=== PATIENT | male | born 1950 | race Caucasian/White ===

== ENCOUNTER 2019-04-20 09:57 | Day surgery (SDC) | payer MEDICARE, BC ==
[~2019-04-20 09:57] MED LIST: Glycopyrrolate 0.2 MG/ML SDV ONE; Lactated Ringers 1,000 ML IV SCH; Midazolam 1 MG/ML 2 ML SDV ONE; Propofol 200 MG/20 ML SDV ONE
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
[2019-04-20] MEDS ORDERED: Propofol 200 MG/20 ML SDV ONE (11:27)
[2019-04-20] MEDS ORDERED: Phenylephrine/Normal Saline 100 MCG/ML 10 ML Syringe ONE (11:28)
--- NOTE | 2019-04-20 12:05 | PCM.OPNOTE ---
- General Post-Op/Procedure Note Date of Surgery/Procedure: 04/20/19 Operative Procedure(s): 1) colonoscopy w bx and,. 2) gastroscopy w bx Findings: see dict [id number] Pre Op Diagnosis: polyp hx and gerd Post-Op Diagnosis: Same Anesthesia Technique: Moderate Sedation Primary Surgeon: Stu Grigsby Pathology: egd bx colon bx Complications: None Condition: Good
[2019-04-20 12:15] VITALS: BP 105/60; PULSE 62
--- NOTE | 2019-04-20 14:35 | OR ---
SURGEON: Stu Grigsby MD DATE OF PROCEDURE: 04/20/2019 PREOPERATIVE DIAGNOSES: History of colon polyp and gastroesophageal reflux disease. POSTOPERATIVE DIAGNOSES: History of colon polyp and gastroesophageal reflux disease. PROCEDURES PERFORMED: Esophagogastroduodenoscopy with biopsy and colonoscopy with biopsy. DESCRIPTION OF PROCEDURE: EGD: The patient was taken to the endoscopy room, and with the [employer], Diprivan was administered. A well-lubricated EGD scope was gently inserted through the oropharynx, down the esophagus, passing through the gastroesophageal junction, into the stomach. The mucosa was examined upon the passage. Any etiology will be noted. Once in the stomach, we continued to advance to the distal antrum, passed through the pylorus into the second portion of the duodenum. Again, the mucosa was examined for any abnormality and etiology. The scope was then retrieved back to the stomach and then retroflexed to look at the fundus of the stomach. If a biopsy was indicated, we will biopsy the antrum, body, and gastroesophageal junction. The air will be sucked out while the scope is retrieved to reduce the patient's discomfort. The patient tolerated the procedure well. There were no intraoperative complications. Dr. Grigsby was present through the whole procedure. Prior to surgery, a time-out had been called, the patient identified, procedure identified and antibiotic administered. The patient was taken to the endoscopy room. A time out was called, patient identified, and procedure identified. Diprivan was then administrated. Patient went from awake to sleep, hearing doctor talking or door closing is normal. Perineum inspection and digital examination were then performed. A well- lubricated colonoscope was gently inserted through the rectum, advanced past the rectosigmoid junction, the descending colon, splenic flexure, transverse colon, hepatic flexure, ascending colon, arrived to the cecum. Cecum was identified as dictated in the finding. Then the scope was carefully withdrawn while attention was paid to the mucosal surface for any abnormality. Air will be sucked out during the scope withdrawal. At the rectum, retroflexed to examine any rectal diseases, fistula or hemorrhoids. During mucosal examination, abnormality or polyp was noted; picture taken and biopsy performed. Patient tolerated procedure well. There were no intraoperative complications, and Dr. Grigsby was present throughout the whole procedure. FINDINGS: EGD findings: 1. The patient is easily sedated with [employer] and Diprivan, the patient is soundly snoring. 2. Oropharynx and proximal esophagus are free of disease and no inflammation or stricture. Distal GE junction at 40 shows moderate salmon-colored change consistent with acid reflux. Stomach rugae are normal in appearance. Antrum is quite inflamed, no ulcer though and no food particle, blood, or bile observed. Duodenum is grossly normal. Retroflexed look at the fundus of stomach, there is no hiatal hernia, but there is quite a lot of polyp, I mean many of them, at least 100 of them. Some of them are pretty big, so biopsy done at antrum, two times, to catch the inflammatory polyp and the mass. The mass was at greater curvature. It looked like it was just a giant polyp and biopsied two times and body and also polyp in the body and so several biopsies and one at GE junction at 40 also biopsied. Sucked out the gas while scope pulling out. Colonoscopy findings: 1. The patient is easily sedated with [employer] and Diprivan, the patient is soundly snoring. 2. Bowel prep was average with moderate amount of liquid stool, no semi-formed stool. 3. Colon rather straightforward. Cecum indicated by ileocecal fold, one-to- one indentation, and appendiceal orifice. Light emittance is not observed. Mucosa examined upon scope pulling out and colon is rather short, it finished at about 1 m. There are three 2 mm sessile polyps at one ring distal to the cecum and all removed with biopsy forceps. The patient also has mild diverticulosis, no signs or symptoms of diverticulitis, of the sigmoid colon, and other than that, no other lesions. No stricture, inflammation, AV malformation, bleeding, ulcer, none of those. The patient has several internal hemorrhoids and no external hemorrhoid. The patient would benefit from repeat colonoscopy 10 years from today or if clinically indicated otherwise. The patient may benefit to have a GI consult because of the number of polyps and probably would benefit from repeat EGD in 6 months. ETHEL / CHARLES /[id number]
== END 2019-04-20 12:30 | disposition home or self-care (01) ==
LOC: MW.SDS 09:57
PROVIDERS: ATTEND Surgery
DX: Z12.11 Encounter for screening for malignant neoplasm of colon (principal); D12.0 Benign neoplasm of cecum; K21.9 Gastro-esophageal reflux disease without esophagitis; K64.8 Other hemorrhoids; K29.50 Unspecified chronic gastritis without bleeding; K20.9 Esophagitis, unspecified; I10 Essential (primary) hypertension; B19.20 Unspecified viral hepatitis C without hepatic coma; E03.9 Hypothyroidism, unspecified; E66.9 Obesity, unspecified; Z80.0 Family history of malignant neoplasm of digestive organs; Z86.010 Personal history of colon polyps; Z88.1 Allergy status to other antibiotic agents; Z91.02 Food additives allergy status; Z91.048 Other nonmedicinal substance allergy status; Z79.899 Other long term (current) drug therapy; Z87.891 Personal history of nicotine dependence; Z68.39 Body mass index [BMI] 39.0-39.9, adult
CPT/HCPCS: 43239; 45378; 88305; 88312; J2250; J2370; J2704; J3490; J7120

== ENCOUNTER 2020-06-20 07:41 | Day surgery (SDC) | payer MEDICARE, BC, OTHER ==
[~2020-06-20 07:41] MED LIST changes: -Glycopyrrolate 0.2 MG/ML SDV ONE; -Midazolam 1 MG/ML 2 ML SDV ONE; -Propofol 200 MG/20 ML SDV ONE; +Sodium Chloride 0.9% 10 ML SDV IV PRN; +Sodium Chloride 0.9% 10 ML Syringe FLUSH PRN; +Sodium Chloride 0.9% 2.5 ML Syringe FLUSH PRN
[2020-06-20] MEDS ORDERED: Midazolam 1 MG/ML 2 ML SDV ONE (08:24)
[2020-06-20] MEDS ORDERED: Lidocaine 2% 5 ML SDV ONE (08:24)
[2020-06-20] MEDS ORDERED: fentaNYL 100 MCG/2 ML SDV ONE (08:24)
[2020-06-20] MEDS ORDERED: Propofol 200 MG/20 ML SDV ONE (08:24)
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
[2020-06-20 10:24] VITALS: PULSE 59
--- NOTE | 2020-06-20 10:25 | PCM.POSTAN ---
POST ANESTHESIA ASSESSMENT - MENTAL STATUS Mental Status: Alert, Oriented - VITAL SIGNS Vital Signs: Last Vital Signs Temp 97.2 F 06/20/20 09:54 Pulse 59 L 06/20/20 10:22 Resp 12 06/20/20 10:22 BP 116/69 06/20/20 10:22 Pulse Ox 98 06/20/20 10:22 - RESPIRATORY Respiratory Status: Respiratory Rate WNL, Airway Patent, O2 Saturation Stable - CARDIOVASCULAR CV Status: Pulse Rate WNL, Blood Pressure Stable - GASTROINTESTINAL GI Status: No Symptoms - POST OP HYDRATION Hydration Status: Adequate & Stable
--- NOTE | 2020-06-20 10:25 | PCM48HPAN ---
Post Anesthesia Note - EVALUATION WITHIN 48HRS OF ANESTHETIC Vital Signs in Normal Range: Yes Patient Participated in Evaluation: Yes Respiratory Function Stable: Yes Airway Patent: Yes Cardiovascular Function Stable: Yes Hydration Status Stable: Yes Pain Control Satisfactory: Yes Nausea and Vomiting Control Satisfactory: Yes Mental Status Recovered: Yes Vital Signs: Last Vital Signs Temp 97.2 F 06/20/20 09:54 Pulse 59 L 06/20/20 10:22 Resp 12 06/20/20 10:22 BP 116/69 06/20/20 10:22 Pulse Ox 98 06/20/20 10:22
--- NOTE | 2020-06-20 10:29 | PCM.OPNOTE ---
- General Post-Op/Procedure Note Date of Surgery/Procedure: 06/20/20 Operative Procedure(s): colonoscopy w bx Findings: see [id number] Pre Op Diagnosis: TV polyp Post-Op Diagnosis: Same Anesthesia Technique: Moderate Sedation Primary Surgeon: Stu Grigsby Pathology: apthus ulcer bx at r and left colon Complications: None Condition: Good Free Text/Narrative:: Intake & Output 06/19/20 06/20/20 06/20/20 22:59 06:59 14:59 Intake Total 750 Balance 750
[2020-06-20 11:16] VITALS: BP 134/70
--- NOTE | 2020-06-20 15:25 | OR ---
SURGEON: Stu Grigsby MD DATE OF PROCEDURE: 06/20/2020 PREOPERATIVE DIAGNOSIS: History of tubulovillous polyp. PROCEDURE PERFORMED: Colonoscopy with biopsy. PRIMARY SURGEON: Stu Grigsby MD COMPLICATIONS: None. DESCRIPTION OF PROCEDURE: The patient was taken to the endoscopy room. A time out was called, patient identified, and procedure identified. Diprivan was then administrated. Patient went from awake to sleep, hearing doctor talking or door closing is normal. Perineum inspection and digital examination were then performed. A well- lubricated colonoscope was gently inserted through the rectum, advanced past the rectosigmoid junction, the descending colon, splenic flexure, transverse colon, hepatic flexure, ascending colon, arrived to the cecum. Cecum was identified as dictated in the finding. Then the scope was carefully withdrawn while attention was paid to the mucosal surface for any abnormality. Air will be sucked out during the scope withdrawal. At the rectum, retroflexed to examine any rectal diseases, fistula or hemorrhoids. During mucosal examination, abnormality or polyp was noted; picture taken and biopsy performed. Patient tolerated procedure well. There were no intraoperative complications, and Dr. Grigsby was present throughout the whole procedure. FINDINGS: 1. The patient is easily sedated with [employer]IE[employer] MATE and Diprivan, the patient is soundly snoring. 2. Bowel prep is average to a little bit above average. There is no semi- formed stool. There is no stool ball. 3. Colon is rather straightforward and cecum indicated by ileocecal fold, one- to-one indentation, appendiceal orifice. ScopeGuide is pointing south. Light emittance is not observed. Mucosa examined upon scope pulling out and the previous area that I saw some sessile polyp is totally squeaky clean, nothing there, that is the cecum and a couple of rings distal to the cecum, they all look pretty good. Some area shows some kind of aphthous ulcer and it was biopsied. In fact several of them, just biopsied one, in the right colon biopsied one close to the rectum. They are kind of inflamed and look like aphthous ulcer, I biopsied. Other than that, there is no other polyp, inflammation, stricture, AV malformation, bleeding, ulcer other than what I just described. The patient has a couple of diverticula on the right colon and the left colon. No signs or symptoms of diverticulitis. He has some mild internal hemorrhoids, no external hemorrhoids. The patient would benefit from repeat colonoscopy, depends on the biopsy. If all favorable, should be around 3 years for repeat colonoscopy for TV polyp or if clinically indicated otherwise. As always, thank you for the kind referral. ETHEL SOTO /[id number]
== END 2020-06-20 11:05 | disposition home or self-care (01) ==
LOC: MW.SDS 07:41
PROVIDERS: ATTEND Surgery
DX: K57.30 Diverticulosis of large intestine without perforation or abscess without bleeding (principal); K64.8 Other hemorrhoids; K63.3 Ulcer of intestine; K63.5 Polyp of colon; Z01.812 Encounter for preprocedural laboratory examination; Z20.828 Contact with and (suspected) exposure to other viral communicable diseases; K21.9 Gastro-esophageal reflux disease without esophagitis; I10 Essential (primary) hypertension; Z88.8 Allergy status to other drugs, medicaments and biological substances; Z79.899 Other long term (current) drug therapy; Z98.890 Other specified postprocedural states; Z87.891 Personal history of nicotine dependence; B19.20 Unspecified viral hepatitis C without hepatic coma; E66.9 Obesity, unspecified; Z68.32 Body mass index [BMI] 32.0-32.9, adult; Z86.010 Personal history of colon polyps
CPT/HCPCS: 45380; 88305; J2704; J7120; U0002; 00812; J2001; J2250; J3010